=== PATIENT | female | born 1940 | race American Indian/Alaskan Native ===

== ENCOUNTER 2018-02-25 10:53 | Emergency (ER) | payer MEDICARE, OTHER ==
[2018-02-25] MEDS ORDERED: ASPIRIN PO ONE (11:25)
[2018-02-25 11:56] LABS: Basophils % (Auto) 0.8 % (0.0-1.8); Eosinophils # (Auto) 0.1 K/mm3 (0.0-0.4); Eosinophils % (Auto) 2.2 % (0.0-4.3); Hematocrit 38.2 % (30.3-42.9); Hemoglobin 12.5 gm/dl (10.1-14.3); Lymphocytes # (Auto) 1.4 K/mm3 (1.2-5.4); Lymphocytes % (Auto) 28.8 % (13.4-35.0); Mean Corpuscular HGB Conc 33 % (30-34); Mean Corpuscular Hemoglobin 27 pg (28-32); Mean Corpuscular Volume 82 fl (79-97); Monocytes # (Auto) 0.6 K/mm3 (0.0-0.8); Monocytes % (Auto) 11.8 % (0.0-7.3); Platelet Count 252 K/mm3 (140-440); Red Blood Count 4.69 M/mm3 (3.65-5.03); Red Cell Distribution Width 13.1 % (13.2-15.2)
[2018-02-25 12:12] LABS: BUN/Creatinine Ratio 18; Blood Urea Nitrogen 18 mg/dL (7-17); Calcium 9.7 mg/dL (8.4-10.2); Hemolysis Index 5
[2018-02-26 00:45] VITALS: BP 134/76
--- NOTE | 2018-02-26 02:33 | Emergency Department Report ---
ED Chest Pain HPI - General Chief Complaint: Chest Pain Stated Complaint: CHEST PAIN Time Seen by Provider: 02/26/18 02:21 Source: patient Mode of arrival: Ambulatory Limitations: No Limitations - History of Present Illness Initial Comments: Patient is 77 years old female with history of hypertension. Patient presented to the ER complaining of right upper chest pain for the last week. Patient stated that it is on and off, sharp in nature and does not radiate. Patient denied any substernal or left-sided chest pain. No shortness of breath, fever or cough. Patient stated that she's been lifting heavy stuff recently. MD Complaint: chest pain -: week(s) Onset: during rest Pain Location: right chest Pain Radiation: none Severity scale (0 -10): 4 Quality: sharp Consistency: intermittent - Related Data Home Medications Medication Instructions Recorded Confirmed Last Taken Aspirin EC [Halfprin EC] 81 mg PO QDAY 10/31/13 11/04/13 11/03/13 Calcium Carbonate [Oscal] 1,250 mg PO DAILY 10/31/13 11/11/13 11/10/13 Celecoxib [celeBREX] 200 mg PO DAILY 10/31/13 11/04/13 11/03/13 Fenofibrate Nanocrystallized 145 mg PO DAILY 10/31/13 11/11/13 11/10/13 [Tricor] Multivitamin with Minerals [One 1 each PO DAILY 10/31/13 11/11/13 11/10/13 Daily] Triamter/Hctz 37.5-25 mg 1 tab PO QDAY 10/31/13 11/11/13 11/10/13 [Maxzide-25] Ubidecarenone [Ultra Coq10] 75 mg PO DAILY 10/31/13 11/11/13 11/10/13 Verapamil HCl [Verapamil ER Pm] 180 mg PO DAILY 10/31/13 11/11/13 11/10/13 20:00 Alendronate Sodium 70 mg PO QWEEK 11/04/13 11/11/13 11/10/13 Loratadine [Claritin] 10 mg PO DAILY PRN 11/04/13 11/04/13 Unknown Allergies Allergy/AdvReac Type Severity Reaction Status Date / Time No Known Allergies Allergy Unverified 10/30/13 14:31 Heart Score - HEART Score History: Slightly suspicious EKG: Non-specific Age: > 65 Risk factors: 1-2 risk factors Troponin: < normal limit HEART Score: 4 - Critical Actions Critical Actions: 4-6 pts:12-16.6% risk of adverse cardiac event. Should be admitted ED Review of Systems ROS: Stated complaint: CHEST PAIN Other details as noted in HPI Comment: All other systems reviewed and negative Constitutional: denies: chills, fever Respiratory: denies: cough, orthopnea, shortness of breath, SOB with exertion, SOB at rest Cardiovascular: chest pain. denies: palpitations, dyspnea on exertion Gastrointestinal: denies: abdominal pain, nausea, vomiting, diarrhea, constipation, hematemesis, hematochezia Musculoskeletal: denies: back pain Skin: denies: lesions Neurological: denies: headache, weakness, numbness, paresthesias, confusion ED Past Medical Hx - Past Medical History Hx Hypertension: Yes Hx Sickle Cell Disease: Yes (TRAIT) Hx Arthritis: Yes Additional medical history: murmur - Surgical History Hx Breast Surgery: Yes (L BREAST IMPLANT W/RECONST 2007;EXC L BREAST LUMP 07/2011 ;) - Social History Smoking Status: Never Smoker Substance Use Type: None - Medications Home Medications: Home Medications Medication Instructions Recorded Confirmed Last Taken Type Aspirin EC [Halfprin EC] 81 mg PO QDAY 10/31/13 11/04/13 11/03/13 History Calcium Carbonate [Oscal] 1,250 mg PO DAILY 10/31/13 11/11/13 11/10/13 History Celecoxib [celeBREX] 200 mg PO DAILY 10/31/13 11/04/13 11/03/13 History Fenofibrate Nanocrystallized 145 mg PO DAILY 10/31/13 11/11/13 11/10/13 History [Tricor] Multivitamin with Minerals [One 1 each PO DAILY 10/31/13 11/11/13 11/10/13 History Daily] Triamter/Hctz 37.5-25 mg 1 tab PO QDAY 10/31/13 11/11/13 11/10/13 History [Maxzide-25] Ubidecarenone [Ultra Coq10] 75 mg PO DAILY 10/31/13 11/11/13 11/10/13 History Verapamil HCl [Verapamil ER Pm] 180 mg PO DAILY 05/16/14 05/27/14 05/26/14 20: 00 History Alendronate Sodium 70 mg PO QWEEK 11/04/13 11/11/13 11/10/13 History Loratadine [Claritin] 10 mg PO DAILY PRN 11/04/13 11/04/13 Unknown History ED Physical Exam - General Limitations: No Limitations General appearance: alert, in no apparent distress - Head Head exam: Present: atraumatic, normocephalic, normal inspection - ENT ENT exam: Present: normal exam, normal orophraynx, mucous membranes moist - Neck Neck exam: Present: normal inspection, full ROM. Absent: tenderness, meningismus, lymphadenopathy, thyromegaly - Respiratory Respiratory exam: Present: normal lung sounds bilaterally, chest wall tenderness (right lower chest.). Absent: respiratory distress, wheezes, rales, rhonchi, accessory muscle use, decreased breath sounds, prolonged expiratory - Cardiovascular Cardiovascular Exam: Present: regular rate, normal rhythm, normal heart sounds - GI/Abdominal GI/Abdominal exam: Present: soft, normal bowel sounds. Absent: distended, tenderness, guarding, rebound, rigid, organomegaly, mass, bruit, pulsatile mass , hernia - Extremities Exam Extremities exam: Present: normal inspection, full ROM, normal capillary refill - Back Exam Back exam: Present: normal inspection, full ROM. Absent: CVA tenderness (R), CVA tenderness (L), muscle spasm, paraspinal tenderness, vertebral tenderness - Neurological Exam Neurological exam: Present: alert, oriented X3, CN II-XII intact, normal gait, reflexes normal - Psychiatric Psychiatric exam: Present: normal affect - Skin Skin exam: Present: warm, intact, normal color ED Course Vital Signs 02/25/18 02/25/18 02/26/18 11:22 18:20 00:43 Temperature 99 F 97.8 F Pulse Rate 103 H 89 72 Respiratory 18 18 16 Rate Blood Pressure 121/71 134/86 Blood Pressure 134/76 [Right] O2 Sat by Pulse 99 99 98 Oximetry ED Medical Decision Making - Lab Data Result diagrams: 02/25/18 11:35 02/25/18 11:35 - EKG Data -: EKG Interpreted by Mi EKG shows normal: sinus rhythm Rate: normal, tachycardia - EKG Data Interpretation: no acute changes - Radiology Data Radiology results: report reviewed Referring Physician: VANITA KOCH Patient Name: VALERIANO AGUILAR Date of : 1940 Sex: Female Report Date: 2018-02-26 Report Status: Finalized Findings [facility] [address] [place] [address] XRay Report Signed Patient: VALERIANO AGUILAR MR#: [id number] : 1940 Acct:[id number] Age/Sex: 77 / F ADM Date: 02/25/18 Loc: ED Attending Dr: Ordering Physician: VANITA KOCH Date of Service: 02/26/18 Procedure(s): XR chest 1V ap Accession Number(s): [id number] cc: VANITA KOCH Fluoro Time In Minutes: FINAL REPORT EXAM: XR CHEST 1V AP HISTORY: chest pain COMPARISON: None available. FINDINGS: Frontal view(s) of the chest obtained. Heart upper limits normal in size. Surgical clips project over the left breast tissue.. No gross consolidation or effusion. No pneumothorax. IMPRESSION: No grossly acute findings. Transcribed By: LMA Dictated By: LUZ WALLACE MD Electronically Authenticated By: LUZ WALLACE MD Signed Date/Time: 02/26/18249 DD/ 9 TD/TT: 02/26/18249 - Medical Decision Making Patient is 77 years old female with history of hypertension. Patient presented to the ER complaining of right upper chest pain for the last week. Patient stated that it is on and off, sharp in nature and does not radiate. Patient denied any substernal or left-sided chest pain. No shortness of breath, fever or cough. Patient stated that she's been lifting heavy stuff recently. Patient EKG did not show any ST elevation or depression. 3 sets of troponins negative, d-dimer is negative, chest x-ray is negative for acute finding. Patient chest pain is reproducible, I believe this is most likely costochondritis versus pleurisy. I advised patient to follow up with her primary care physician. I will start patient on Naprosyn 500 twice a day for 7 days and advised patient to follow-up with her primary care physician in the next 2-3 days. I also advised her to return to the ER if her symptoms are not improving. Critical care attestation.: If time is entered above; I have spent that time in minutes in the direct care of this critically ill patient, excluding procedure time. ED Disposition Clinical Impression: Chest pain, Costochondritis, acute Disposition: DC-01 TO HOME OR SELFCARE Is pt being admited?: No Condition: Stable Instructions: Chest Pain (ED), Costochondritis (ED) Referrals: PRIMARY CARE, [Primary Care Provider] - 3-5 Days
--- NOTE | 2018-02-26 02:50 | XRay Report ---
FINAL REPORT EXAM: XR CHEST 1V AP HISTORY: chest pain COMPARISON: None available. FINDINGS: Frontal view(s) of the chest obtained. Heart upper limits normal in size. Surgical clips project over the left breast tissue.. No gross consolidation or effusion. No pneumothorax. IMPRESSION: No grossly acute findings.
== END 2018-02-26 03:43 | disposition home or self-care (01) ==
LOC: ED 10:53
DX: M94.0 Chondrocostal junction syndrome [Tietze] (principal); I10 Essential (primary) hypertension; M19.90 Unspecified osteoarthritis, unspecified site; D57.1 Sickle-cell disease without crisis; Z79.82 Long term (current) use of aspirin
CPT/HCPCS: 36415; 71045; 80048; 84484; 85025; 85379; 93005; 93010; 99284

== ENCOUNTER 2019-01-17 08:14 | Outpatient (CLI) | payer MEDICARE, OTHER | END 2019-01-17 08:15 | disposition home or self-care (01) | LOC: LAB 08:14 | PROVIDERS: ATTEND Internal Medicine | DX: R73.03 Prediabetes (principal); I10 Essential (primary) hypertension; E78.00 Pure hypercholesterolemia, unspecified; E78.5 Hyperlipidemia, unspecified; Z90.710 Acquired absence of both cervix and uterus | CPT/HCPCS: 36415; 83036 ==

== ENCOUNTER 2019-07-04 10:40 | Outpatient (CLI) | payer MEDICARE, OTHER ==
[2019-07-04 12:50] LABS: Basophils # (Auto) 0.1 K/mm3 (0.0-0.1); Basophils % (Auto) 0.9 % (0.0-1.8); Eosinophils # (Auto) 0.1 K/mm3 (0.0-0.4); Eosinophils % (Auto) 2.3 % (0.0-4.3); Hematocrit 40.6 % (30.3-42.9); Hemoglobin 13.2 gm/dl (10.1-14.3); Lymphocytes # (Auto) 1.3 K/mm3 (1.2-5.4); Lymphocytes % (Auto) 21.7 % (13.4-35.0); Mean Corpuscular HGB Conc 33 % (30-34); Mean Corpuscular Volume 83 fl (79-97); Monocytes # (Auto) 0.5 K/mm3 (0.0-0.8); Monocytes % (Auto) 9.5 % (0.0-7.3); Platelet Count 260 K/mm3 (140-440); Red Blood Count 4.92 M/mm3 (3.65-5.03); Red Cell Distribution Width 13.5 % (13.2-15.2)
[2019-07-04 13:08] LABS: BUN/Creatinine Ratio 14; Blood Urea Nitrogen 14 mg/dL (7-17); Calcium 7.6 mg/dL (8.4-10.2); Hemolysis Index 11
[2019-07-04 13:21] LABS: Albumin < 0.2 g/dL (3.9-5)
[2019-07-04 13:24] LABS: Alanine Aminotransferase 11 units/L (7-56); Chol/HDL Ratio 2.29 %; HDL Cholesterol 72 mg/dL (40-59); LDL Cholesterol,Direct 92 mg/dL (50-130)
[2019-07-07 09:40] LABS: Vitamin D, 25-OH, D2 <4 ng/mL
== END 2019-07-04 10:41 | disposition home or self-care (01) ==
LOC: LAB 10:40
PROVIDERS: ATTEND Internal Medicine
DX: Z00.00 Encounter for general adult medical examination without abnormal findings (principal); Z13.21 Encounter for screening for nutritional disorder; R73.03 Prediabetes; E78.00 Pure hypercholesterolemia, unspecified
CPT/HCPCS: 36415; 80053; 80061; 82306; 82607; 83036; 84443; 85025

== ENCOUNTER 2021-03-23 09:12 | Outpatient (CLI) | payer MEDICARE, OTHER ==
--- NOTE | 2021-03-23 12:00 | Mammography Report ---
DIGITAL SCREENING MAMMOGRAM WITH CAD, 03/23/2021 CLINICAL INFORMATION / INDICATION: Routine screening mammography. SCREENING MAMMO TECHNIQUE: Digital right 2D mammography was obtained in the craniocaudal and mediolateral oblique pr ojections. This examination was interpreted with the benefit of Computer-Aided Detection analysis. COMPARISON: 02/07/2016 through 03/08/2020. FINDINGS: Breast Density: The breasts are heterogeneously dense, which may obscure small masses. No dominant mass, suspicious calcifications, or architectural distortion in the right breast. There are reduction changes. A biopsy clip in the lower inner quadrant superficially is again identif ied. IMPRESSION: No mammographic evidence of malignancy. Follow up recommendation: Routine yearly BI-RADS Category 2: Benign. A "normal" or negative report should not discourage follow up or biopsy of a clinically significant f inding. A written summary of these findings will be mailed to the patient. The patient will be entered into a mammography reporting system which will generate a reminder letter for the patient's next appointmen t at the appropriate interval. The [employer] recommends yearly mammograms starting at age 40 and continuing as l viktor as a woman is in good health. Breast MRI is recommended for women with an approximate 20-25% or greater lifetime risk of breast cancer, including women with a strong family history of breast or ova prasad cancer or who have been treated for Hodgkin's disease. Signer Name: Louie Hurtado MD Signed: 03/23/2021 11:55 AM Workstation Name: [id number]
== END 2021-03-23 09:13 | disposition home or self-care (01) ==
LOC: SPVWC 09:12
PROVIDERS: ATTEND Internal Medicine
DX: Z12.31 Encounter for screening mammogram for malignant neoplasm of breast (principal); N64.89 Other specified disorders of breast
CPT/HCPCS: 77067